=== PATIENT | female | born 1960 | race Caucasian/White ===

== ENCOUNTER 2016-06-02 08:45 | Day surgery (SDC) | payer BC ==
--- NOTE | 2016-06-01 16:53 | PCM.PREANE ---
Preanesthetic Assessment - PMH PMH: current colonoscopy screening - ANESTHESIA/TRANSFUSION/FAMILY HX Anesthesia/Transfusion History: Prior Anesthesia Type of Anesthesia Reaction: Denies: Allergy, Anesthesia Awareness, Excessive Somnolence, Excessive Nausea/Vomiting, Excessive Itching, Excessive Shivering, Malignant Hyperthermia, Malignant Hyperthermia, Family History, Pseudocholinesterase Deficiency, Pseudocholinesterase Deficiency, Family History of, Urinary Retention, Unknown, Other (see below) Family History of Anesthesia Reaction: No - REVIEW OF SYSTEMS Constitutional: Reports: no symptoms 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 Respiratory: Reports: no symptoms Cardiovascular: Reports: no symptoms GI: Reports: no symptoms Other: Reports: none - PHYSICAL ASSESSMENT Height: 5 ft 7 in Weight: 87.09 kg NPO Status Date: 06/01/16 NPO Status Time: 22:30 ASA Class: 2 Mental Status: alert & oriented x3 Airway Class: Mallampati = 1 Dentition: Reports: normal dentition, partial (upper) Thyro-Mental Finger Breadths: 3 Mouth Opening Finger Breadths: 3 ROM/Head Extension: full Respiratory Status: lungs clear to auscultation bilaterally Cardiovascular Status: regular rate & rhythm, normal S1, S2, no murmur, blood pressure WNL - ALLERGIES Allergies/Adverse Reactions: Allergies Allergy/AdvReac Type Severity Reaction Status Date / Time No Known Allergies Allergy Verified 08/10/13 21:10 - BLOOD Blood Available: No - ANESTHESIA PLAN Anesthesia Type Planned: MAC - ACKNOWLEDGEMENTS Pt an appropriate candidate for the planned anesthesia: Yes Alternatives and risks of anesthesia discussed w pt/guardian: Yes Pt/Guardian understands and agree with anesthesia plan: Yes PreAnesthesia Questionnaire HEENT History: Reports: Other (see below) Other HEENT History: top denture Cardiovascular History: Reports: SOB on exertion Other Cardiovascular History: atypical chest pain/ flutter feeling- stress test 02/15 negative with EF 70% patient believes it was anxiety related Respiratory History: Reports: COPD Other Respiratory History: SOB -PFT completed in 2014- patient denies SOB and is very active Other Gastrointestinal History: intestinal obstruction had lysis of adhesions procedure 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 pylori), Lysis of adhesions Female Surgical History: Reports: section, Hysterectomy Other Female Surgeries/Procedures: hx surgery for lysis of peritoneal adhesions - SUBSTANCE USE Smoking Status *Q: Current Every Day Smoker Days Per Week of Alcohol Use: 0 Recreational Drug Use History: No - HOME MEDS Home Medications: Home Meds Aspirin [Magaly Chewable] 81 mg PO DAILY 08/10/13 [History] Estrogens,Conj.,Synthetic A [Cenestin] 0.625 mg PO DAILY 08/10/13 [History] Sertraline [Zoloft] 50 mg PO DAILY 08/10/13 [History] L.acidoph,Paracasei, B.lactis [Probiotic] 1 tab PO DAILY 05/30/16 [History]
[~2016-06-02 08:45] MED LIST: Lactated Ringers 1,000 ML IV SCH; Lidocaine 2% 5 ML SDV ONE; Propofol 200 MG/20 ML SDV ONE; Sodium Chloride 0.9% 10 ML Syringe FLUSH PRN; Sodium Chloride 0.9% 2.5 ML Syringe FLUSH PRN; fentaNYL 100 MCG/2 ML SDV ONE
[2016-06-02] MEDS ORDERED: fentaNYL 100 MCG/2 ML SDV ONE (09:54)
[2016-06-02] MEDS ORDERED: Midazolam 1 MG/ML 2 ML SDV ONE (10:00)
[2016-06-02] MEDS ORDERED: Propofol 200 MG/20 ML SDV ONE ×3 (10:02→10:42)
[2016-06-02] MEDS ORDERED: Phenylephrine/Normal Saline 100 MCG/ML 10 ML Syringe ONE (10:19)
--- NOTE | 2016-06-02 10:49 | PCM.OPNOTE ---
- General Post-Op/Procedure Note Date of Surgery/Procedure: 06/02/16 Operative Procedure(s): SCREENING COLONOSCOPY Findings: descending colon and sigmoid polyps. cecal biopsy taken. Pre Op Diagnosis: screening colonoscopy Post-Op Diagnosis: screening colonoscopy Anesthesia Technique: [facility] [place] Surgeon: Viki Crowell Condition: Good Free Text/Narrative:: 55 year old female that underwent a screening colonoscopy. Findings: sigmoid and descending colon polyps. Cecal biopsy taken. Discharge plan: 1. f/u with Dr. Crowell in 2 weeks.
--- NOTE | 2016-06-02 11:03 | PCM.POSTAN ---
POST ANESTHESIA ASSESSMENT - MENTAL STATUS Mental Status: alert, oriented - RESPIRATORY Respiratory Status: respiratory rate WNL, airway patent, O2 saturation stable - CARDIOVASCULAR CV Status: pulse rate WNL, blood pressure stable - GASTROINTESTINAL GI Status: no symptoms - PAIN Pain Score: 0 - POST OP HYDRATION Hydration Status: adequate & stable
--- NOTE | 2016-06-02 11:28 | PCM48HPAN ---
Post Anesthesia Note - EVALUATION WITHIN 48HRS OF ANESTHETIC Vital Signs in Normal Range: Yes Patient Participated in Evaluation: Yes Respiratory Function Stable: Yes Airway Patent: Yes Cardiovascular Function Stable: Yes Hydration Status Stable: Yes Pain Control Satisfactory: Yes Nausea and Vomiting Control Satisfactory: Yes Mental Status Recovered: Yes
[2016-06-02 11:39] VITALS: BP 117/68
--- NOTE | 2016-06-02 18:52 | OR ---
SURGEON: VENICE TORRES MD DATE OF PROCEDURE: 06/02/2016 PREOPERATIVE DIAGNOSIS: Screening colonoscopy. POSTOPERATIVE DIAGNOSIS: Screening colonoscopy. PROCEDURE PERFORMED: Screening colonoscopy with biopsies. INSTRUMENT USED: Olympus colonoscope. ANESTHESIA: MAC. EXTENT OF EXAM: To the cecum. PREPARATION: Fair. LIMITATIONS: Unable to retroflex the scope within the cecum secondary to significant looping. INDICATIONS: The patient is a 55-year-old female, who presents for screening colonoscopy. We discussed the procedure including expected perioperative course. We discussed the risks, including bleeding, infection, damage to surrounding structures, including perforation. The patient verbalized understanding and wished to proceed. PROCEDURE IN DETAIL: The patient was brought to the endoscopy suite and placed in left lateral decubitus position on the cart. A time-out was completed verifying the patient's name, age, date of , allergies, and procedure to be performed. Monitored anesthesia care was induced and continuous oxygen was provided via nasal cannula throughout the procedure. After adequate sedation was achieved, a digital rectal exam was performed. This was within normal limits. A well lubricated colonoscope was then inserted in the rectum and advanced under direct visualization to the level of cecum. The cecum was identified by both visual and anatomic landmarks. A photograph was taken of the cecal cap. I was unable to retroflex the scope, due to significant looping of the scope within the sigmoid. The scope was straightened out and fully withdrawn while examining the color, texture, anatomy, and integrity of the mucosa from the cecum to the anal canal. The area around the cecum had one edge that appeared larger than normal. Biopsies were taken of the cecal edge. Two sessile polyps were discovered within the descending colon and sigmoid colon. These were removed with a cold biopsy forceps. The remainder of the colon was normal. The scope was brought into the rectum and retroflexed to allow visualization of the anal canal opening. This appeared normal. Photograph was taken. The scope was then removed from the patient and the procedure terminated. The patient was transferred to the recovery room in stable condition. Cecum to anus time was 20 minutes. ENDOSCOPIC DIAGNOSIS: Cecal biopsies, descending for second cecal edge. Descending colon polyp, sigmoid polyp. RECOMMENDATIONS: Follow up in clinic in 2 weeks. PARVEZ NIELSEN /[id number] WENDY
== END 2016-06-02 11:59 | disposition home or self-care (01) ==
LOC: MW.SDS 08:45
PROVIDERS: ATTEND Surgery
PROC: 0DBH8ZX Excision of Cecum, Via Natural or Artificial Opening Endoscopic, Diagnostic (ICD-10-PCS; principal; 2016-06-02)
PROC: 0DBN8ZZ Excision of Sigmoid Colon, Via Natural or Artificial Opening Endoscopic (ICD-10-PCS; 2016-06-02)
PROC: 0DBM8ZZ Excision of Descending Colon, Via Natural or Artificial Opening Endoscopic (ICD-10-PCS; 2016-06-02)
DX: Z12.11 Encounter for screening for malignant neoplasm of colon (principal); D12.4 Benign neoplasm of descending colon; D12.5 Benign neoplasm of sigmoid colon; K52.9 Noninfective gastroenteritis and colitis, unspecified; J44.9 Chronic obstructive pulmonary disease, unspecified; F17.200 Nicotine dependence, unspecified, uncomplicated; F41.9 Anxiety disorder, unspecified; E66.9 Obesity, unspecified; Z79.82 Long term (current) use of aspirin; Z79.899 Other long term (current) drug therapy; Z90.49 Acquired absence of other specified parts of digestive tract; Z90.710 Acquired absence of both cervix and uterus; Z98.890 Other specified postprocedural states; Z68.30 Body mass index [BMI] 30.0-30.9, adult
CPT/HCPCS: 45380; 82962; 88305; J2250; J3010; J7120; J2704

== ENCOUNTER 2018-05-19 09:33 | Emergency (ER) | payer BC ==
[2018-05-19 09:44] VITALS: BP 166/63
--- NOTE | 2018-05-19 09:51 | EDM.PDOC ---
ED HPI GENERAL MEDICAL PROBLEM - General Chief Complaint: Genitourinary Problem Stated Complaint: URINARY ISSUES Time Seen by Provider: 05/19/18 09:41 - History of Present Illness INITIAL COMMENTS - FREE TEXT/NARRATIVE: HISTORY AND PHYSICAL: History of present illness: Patient 57-year-old white female presents with history of discomfort with urination 1 day she's had UTIs frequently in the past she responds well to Bactrim area there is no fever chills nausea vomiting back pain or other concern Review of systems: As per history of present illness and below otherwise all systems reviewed and negative. Past medical history: As per history of present illness and as reviewed below otherwise noncontributory. Surgical history: As per history of present illness and as reviewed below otherwise noncontributory. Social history: No reported history of drug or alcohol abuse. Family history: As per history of present illness and as reviewed below otherwise noncontributory. Physical exam: HEENT: Atraumatic, normocephalic, pupils reactive, negative for conjunctival pallor or scleral icterus, mucous membranes moist, throat clear, neck supple, nontender, trachea midline. Lungs: Clear to auscultation, breath sounds equal bilaterally, chest nontender. Heart: S1S2, regular, negative for clicks, rubs, or JVD. Abdomen: Soft, nondistended, nontender. Negative for masses or hepatosplenomegaly. Negative for costovertebral tenderness. Pelvis: Stable nontender. Genitourinary: Deferred. Rectal: Deferred. Extremities: Atraumatic, negative for cords or calf pain. Neurovascular unremarkable. Neuro: Awake, alert, oriented. Cranial nerves II through XII unremarkable. Cerebellum unremarkable. Motor and sensory unremarkable throughout. Exam nonfocal. Diagnostics: UA with reflex Therapeutics: None Impression: #1 dysuria/UTI Definitive disposition and diagnosis as appropriate pending reevaluation and review of above. urniary Pain Score (Numeric/FACES): 5 - Related Data Allergies Allergy/AdvReac Type Severity Reaction Status Date / Time No Known Allergies Allergy Verified 05/19/18 09:41 Home Meds: Home Meds Aspirin [Magaly Chewable Aspirin] 81 mg PO DAILY 08/10/13 [History] Estrogens,Conj.,Synthetic A [Cenestin] 0.625 mg PO DAILY 08/10/13 [History] Sertraline [Zoloft] 50 mg PO DAILY 08/10/13 [History] L.acidoph,Paracasei, B.lactis [Probiotic] 1 tab PO DAILY 05/30/16 [History] Past Medical History HEENT History: Reports: Other (See Below) Other HEENT History: top denture Cardiovascular History: Reports: SOB on Exertion Other Cardiovascular History: atypical chest pain/ flutter feeling- stress test 02/15 negative with EF 70% patient believes it was anxiety related Respiratory History: Reports: COPD Other Respiratory History: SOB -PFT completed in 2014- patient denies SOB and is very active Gastrointestinal History: Reports: None Other Gastrointestinal History: intestinal obstruction had lysis of adhesions procedure Genitourinary History: Reports: None 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: Musculoskeletal History: Reports: None Neurological History: Reports: None Psychiatric History: Reports: Anxiety Endocrine/Metabolic History: Reports: Obesity/BMI 30+, Other (See Below) Other Endocrine/Metabolic History: "prediabetic" Hematologic History: Reports: None Immunologic History: Reports: None Oncologic (Cancer) History: Reports: None Dermatologic History: Reports: Other (See Below) Other Dermatologic History: dry skin - Past Surgical History Head Surgeries/Procedures: Reports: None HEENT Surgical History: Reports: None Cardiovascular Surgical History: Reports: None Respiratory Surgical History: Reports: None GI Surgical History: Reports: Cholecystectomy, Colonoscopy, EGD, Lysis of Adhesions Female Surgical History: Reports: Section, Hysterectomy Endocrine Surgical History: Reports: None Neurological Surgical History: Reports: None Musculoskeletal Surgical History: Reports: None Oncologic Surgical History: Reports: None Dermatological Surgical History: Reports: None Social & Family History - Family History Family Medical History: Noncontributory - Tobacco Use Smoking Status *Q: Current Every Day Smoker Years of Tobacco use: 25 Packs/Tins Daily: 0.5 Second Hand Smoke Exposure: No - Caffeine Use Caffeine Use: Reports: Coffee, Soda, Tea - Recreational Drug Use Recreational Drug Use: No ED ROS GENERAL - Review of Systems Review Of Systems: ROS reveals no pertinent complaints other than HPI. ED EXAM, GENERAL - Physical Exam Exam: See Below (See dictation) Course - Vital Signs Last Recorded V/S: Last Vital Signs Temp 36.1 C 05/19/18 09:42 Pulse 69 05/19/18 09:42 Resp 18 05/19/18 09:42 BP 166/63 H 05/19/18 09:42 Pulse Ox 98 05/19/18 09:42 - Orders/Labs/Meds Orders: Active Orders 24 hr Category Date Time Status UA RFX JOE AND CULT IF INDIC [URIN] Stat Lab 05/19/18 09:43 Ordered Departure - Departure Time of Disposition: 09:50 Disposition: Home, Self-Care 01 Condition: Good Clinical Impression: UTI, Urinary tract infectious disease - Discharge Information Referrals: PCP,None [Primary Care Provider] - Additional Instructions: The following information is given to patients seen in the emergency department who are being discharged to home. This information is to outline your options for follow-up care. We provide all patients seen in our emergency department with a follow-up referral. The need for follow-up, as well as the timing and circumstances, are variable depending upon the specifics of your emergency department visit. If you don't have a primary care physician on staff, we will provide you with a referral. We always advise you to contact your personal physician following an emergency department visit to inform them of the circumstance of the visit and for follow-up with them and/or the need for any referrals to a consulting specialist. The emergency department will also refer you to a specialist when appropriate. This referral assures that you have the opportunity for followup care with a specialist. All of these measure are taken in an effort to provide you with optimal care, which includes your followup. Under all circumstances we always encourage you to contact your private physician who remains a resource for coordinating your care. When calling for followup care, please make the office aware that this follow-up is from your recent emergency room visit. If for any reason you are refused follow-up, please contact the [facility] emergency department at and asked to speak to the emergency department charge nurse. Bactrim as prescribed push fluids follow primary medical doctor as needed as discussed and return as needed as discussed - My Orders Last 24 Hours: My Active Orders 05/19/18 09:43 UA RFX JOE AND CULT IF INDIC [URIN] Stat - Assessment/Plan Last 24 Hours: My Active Orders 05/19/18 09:43 UA RFX JOE AND CULT IF INDIC [URIN] Stat
== END 2018-05-19 10:44 | disposition home or self-care (01) ==
LOC: MW.ED 09:33
DX: N39.0 Urinary tract infection, site not specified (principal); J44.9 Chronic obstructive pulmonary disease, unspecified; F17.210 Nicotine dependence, cigarettes, uncomplicated; Z79.82 Long term (current) use of aspirin; Z79.899 Other long term (current) drug therapy
CPT/HCPCS: 81001; 87086; 87088; 87186; 99282; 99283

== ENCOUNTER 2019-01-05 12:28 | Emergency (ER) | payer BC ==
--- NOTE | 2019-01-05 12:49 | EDM.PDOC ---
ED HPI GENERAL MEDICAL PROBLEM - General Chief Complaint: Skin Complaint Stated Complaint: LEFT CHEEK SWOLLAN Time Seen by Provider: 01/05/19 12:42 Source of Information: Reports: Patient History Limitations: Reports: No Limitations - History of Present Illness INITIAL COMMENTS - FREE TEXT/NARRATIVE: HISTORY AND PHYSICAL: History of present illness: Patient is a 58-year-old female presenting to the emergency room for complaints of left-sided swelling patient states while eating at [employer] today with her she came out and noticed that the left side of her face was swollen. Confirmed that she has no known drug allergies or food allergies and did not eat anything new at lunch. She describes tightness on the left side of her face that expands to her left ear and neck, but denies pain. She does have complaints of dizziness when walking, "slightly woozy", change in vision that she says is "hard to describe" and "feels like it [her face] is on fire". She denies new supplements, medications, or dental pain. Patient denies any fever, chills, headache, syncope or near syncope. Denies any chest pain, back pain, shortness of breath or cough. Denies any abdominal pain, vomiting, diarrhea, constipation or dysuria. Has not noted any blood in urine or stool. Patient has been eating and drinking appropriately. Review of systems: As per history of present illness and below otherwise all systems reviewed and negative. Past medical history: As per history of present illness and as reviewed below otherwise noncontributory. Surgical history: As per history of present illness and as reviewed below otherwise noncontributory. Social history: See social history for further information Family history: As per history of present illness and as reviewed below otherwise noncontributory. Physical exam: General: Well-nourished and well-developed 58-year-old female. Alert and orientated. Nontoxic in appearance and in no acute distress. Signs have been reviewed by me. HEENT: Normocephalic, slight edema with no erythema noted to the left side of patients face under the zygomatic process extending to the mandible, denies pain along the TMJ, pupils equal and reactive bilaterally, negative for conjunctival pallor or scleral icterus, mucous membranes moist, TMs normal bilaterally, throat clear, firm nodule-like lymph node palpated under left side of mandible, nontender, trachea midline. No drooling or trismus noted. No meningeal signs. No hot potato voice noted. Lungs: Clear to auscultation, breath sounds equal bilaterally, chest nontender. Heart: S1S2, regular rate and rhythm without overt murmur Abdomen: Soft, nondistended, nontender. Negative for masses or hepatosplenomegaly. Negative for costovertebral tenderness. Skin: Intact, warm, dry. No lesions or rashes noted. Extremities: Atraumatic, moves all extremities per self without difficulty or deficits, negative for cords or calf pain. Neurovascular unremarkable. Neuro: Awake, alert, oriented. Cranial nerves II through XII unremarkable. Cerebellum unremarkable. Motor and sensory unremarkable throughout. Exam nonfocal. Notes: Mild diffuse fullness and minimal soft tissue stranding throughout the left parotid gland consistent with nonspecific parotiditis. No sign of any mass, abscess, or adenopathy within the parotid gland. New nonspecific soft tissue fullness of the base of the tongue on the left. Progression of disc degenerative disease at C5-6, now with a moderate diffuse disc bulge/osteophyte complex which could result in mild spinal stenosis. Progression of bilateral foraminal stenosis at this level, now moderate. Dr Pedersen was involved in this patient's care. Patient is able to swallow her saliva and is able to eat and drink. Nontoxic appearing. Medication and supportive care measures were reviewed and discussed. It is noted that her BP is elevated; she states she wants to be discharged and is not concerned with his today. She will follow up with her PCP for this, and follow up with ENT for her diagnosis today. Voices understanding and is agreeable to plan of care. Denies any further questions or concerns at this time. Diagnostics: Soft tissue CT with contrast of the head, CMP, CBC Therapeutics: IV fluid, Solu-Medrol Prescription: Clindamycin Medrol Dosepak Impression: Parotidis, nonspecific Plan: 1. Drink plenty of fluids. Take the medications as directed. 2. Stop smoking. 3. Please follow-up with the ENT specialist in [place] or [place] as we discussed. Return to the ED as needed and as discussed. Definitive disposition and diagnosis as appropriate pending reevaluation and review of above. Left Face/Facial Pain Score (Numeric/FACES): 5 - Related Data Allergies Allergy/AdvReac Type Severity Reaction Status Date / Time No Known Allergies Allergy Verified 01/05/19 12:45 Home Meds: Home Meds Aspirin [Magaly Chewable Aspirin] 81 mg PO DAILY 08/10/13 [History] Estrogens,Conj.,Synthetic A [Cenestin] 0.625 mg PO DAILY 08/10/13 [History] Sertraline [Zoloft] 50 mg PO DAILY 08/10/13 [History] L.acidoph,Paracasei, B.lactis [Probiotic] 1 tab PO DAILY 05/30/16 [History] Past Medical History HEENT History: Reports: Other (See Below) Other HEENT History: top denture Cardiovascular History: Reports: SOB on Exertion Other Cardiovascular History: atypical chest pain/ flutter feeling- stress test 02/15 negative with EF 70% patient believes it was anxiety related Respiratory History: Reports: COPD Other Respiratory History: SOB -PFT completed in 2014- patient denies SOB and is very active Gastrointestinal History: Reports: None Other Gastrointestinal History: intestinal obstruction had lysis of adhesions procedure Genitourinary History: Reports: None 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: Musculoskeletal History: Reports: None Neurological History: Reports: None Psychiatric History: Reports: Anxiety Endocrine/Metabolic History: Reports: Obesity/BMI 30+, Other (See Below) Other Endocrine/Metabolic History: "prediabetic" Hematologic History: Reports: None Immunologic History: Reports: None Oncologic (Cancer) History: Reports: None Dermatologic History: Reports: Other (See Below) Other Dermatologic History: dry skin - Past Surgical History Head Surgeries/Procedures: Reports: None HEENT Surgical History: Reports: None Cardiovascular Surgical History: Reports: None Respiratory Surgical History: Reports: None GI Surgical History: Reports: Cholecystectomy, Colonoscopy, EGD, Lysis of Adhesions Female Surgical History: Reports: Section, Hysterectomy Endocrine Surgical History: Reports: None Neurological Surgical History: Reports: None Musculoskeletal Surgical History: Reports: None Oncologic Surgical History: Reports: None Dermatological Surgical History: Reports: None Social & Family History - Family History Family Medical History: Noncontributory - Caffeine Use Caffeine Use: Reports: Coffee, Soda, Tea ED ROS GENERAL - Review of Systems Review Of Systems: ROS reveals no pertinent complaints other than HPI. ED EXAM, SKIN/RASH Exam: See Below (See dictation) Course - Vital Signs Last Recorded V/S: Last Vital Signs Temp 96.3 F 01/05/19 12:43 Pulse 65 01/05/19 12:43 Resp 18 01/05/19 12:43 BP 180/81 H 01/05/19 12:43 Pulse Ox 97 01/05/19 12:43 - Orders/Labs/Meds Labs: Laboratory Tests 01/05/19 01/05/19 Range/Units 13:14 13:14 WBC 9.96 (4.0-11.0) K/uL RBC 4.36 (4.30-5.90) M/uL Hgb 13.6 (12.0-16.0) g/dL Hct 41.6 (36.0-46.0) % MCV 95.4 (80.0-98.0) fL MCH 31.2 (27.0-32.0) pg MCHC 32.7 (31.0-37.0) g/dL RDW Std Deviation 48.0 (28.0-62.0) fl RDW Coeff of Marco 14 (11.0-15.0) % Plt Count 297 (150-400) K/uL MPV 9.60 (7.40-12.00) fL Neut % (Auto) 57.9 (48.0-80.0) % Lymph % (Auto) 33.4 (16.0-40.0) % Harrison % (Auto) 4.5 (0.0-15.0) % Eos % (Auto) 3.7 (0.0-7.0) % Baso % (Auto) 0.5 (0.0-1.5) % Neut # (Auto) 5.8 H (1.4-5.7) K/uL Lymph # (Auto) 3.3 H (0.6-2.4) K/uL Harrison # (Auto) 0.5 (0.0-0.8) K/uL Eos # (Auto) 0.4 (0.0-0.7) K/uL Baso # (Auto) 0.1 (0.0-0.1) K/uL Nucleated RBC % 0.0 /100WBC Nucleated RBCs # 0 K/uL Sodium 140 (136-145) mmol/L Potassium 4.1 (3.5-5.1) mmol/L Chloride 106 (98-107) mmol/L Carbon Dioxide 26.8 (21.0-32.0) mmol/L BUN 17 (7.0-18.0) mg/dL Creatinine 0.8 (0.6-1.0) mg/dL Est Cr Clr Drug Dosing 108.13 mL/min Estimated GFR (MDRD) > 60.0 ml/min Glucose 111 H (74-106) mg/dL Calcium 8.9 (8.5-10.1) mg/dL Total Bilirubin 0.4 (0.2-1.0) mg/dL AST 20 (15-37) IU/L ALT 21 (14-63) IU/L Alkaline Phosphatase 115 (46-116) U/L Total Protein 7.3 (6.4-8.2) g/dL Albumin 3.5 (3.4-5.0) g/dL Globulin 3.8 (2.6-4.0) g/dL Albumin/Globulin Ratio 0.9 (0.9-1.6) Meds: Medications Discontinued Medications Generic Name Dose Route Start Last Admin Trade Name Anujq PRN Reason Stop Dose Admin Sodium Chloride 1,000 mls @ 999 mls/hr 01/05/19 13:09 01/05/19 13:31 Normal Saline IV 01/05/19 14:09 999 mls/hr STAT ONE Administration Iopamidol 75 ml 01/05/19 13:43 01/05/19 13:44 Isovue Multipack-370 (76%) IVPUSH 01/05/19 13:44 75 ml ONETIME STA Administration Methylprednisolone Sodium Succinate 125 mg 01/05/19 13:04 01/05/19 13:32 Solu-Medrol IVPUSH 01/05/19 13:05 125 mg ONETIME ONE Administration Departure - Departure Time of Disposition: 14:47 Disposition: Home, Self-Care 01 Clinical Impression: Parotiditis - Discharge Information Instructions: Parotitis Referrals: Wolfgang Atkins MD [Primary Care Provider] - Forms: ED Department Discharge Additional Instructions: The following information is given to patients seen in the emergency department who are being discharged to home. This information is to outline your options for follow-up care. We provide all patients seen in our emergency department with a follow-up referral. The need for follow-up, as well as the timing and circumstances, are variable depending upon the specifics of your emergency department visit. If you don't have a primary care physician on staff, we will provide you with a referral. We always advise you to contact your personal physician following an emergency department visit to inform them of the circumstance of the visit and for follow-up with them and/or the need for any referrals to a consulting specialist. The emergency department will also refer you to a specialist when appropriate. This referral assures that you have the opportunity for follow-up care with a specialist. All of these measure are taken in an effort to provide you with optimal care, which includes your follow-up. Under all circumstances we always encourage you to contact your private physician who remains a resource for coordinating your care. When calling for follow-up care, please make the office aware that this follow-up is from your recent emergency room visit. If for any reason you are refused follow-up, please contact the [facility] Emergency Department at and asked to speak to the emergency department charge nurse. [facility] [address] [place] [id number] [address] [address] 1. Drink plenty of fluids. Take the medications as directed. 2. Stop smoking. 3. Please follow-up with the ENT specialist in [place] or [place] as we discussed. Return to the ED as needed and as discussed.
[2019-01-05] MEDS ORDERED: methylPREDNISolone Sodium Succinate 125 MG/2 ML SDV IVPUSH ONE (13:04)
[2019-01-05] MEDS ORDERED: Sodium Chloride 0.9% 1,000 ML IV ONE (13:09)
[2019-01-05 13:40] LABS: BLOOD UREA NITROGEN,BUN 17 mg/dL (7.0-18.0); CARBON DIOXIDE,CO2 26.8 mmol/L (21.0-32.0); CHLORIDE,CL 106 mmol/L (98-107); GLUCOSE RANDOM 111 mg/dL (74-106); POTASSIUM,K 4.1 mmol/L (3.5-5.1); SODIUM,NA 140 mmol/L (136-145)
[2019-01-05] MEDS ORDERED: Iopamidol 755 MG/ML 200 ML Multipack Bottle IVPUSH STA (13:43)
--- NOTE | 2019-01-05 14:31 | CT ---
INDICATION: Left neck swelling. COMPARISON: CT of the cervical spine from 10/14/2012 TECHNIQUE: CT examination of the neck is performed using spiral technique during the uneventful intravenous administration of 75 cc of Isovue 370. 3 mm thick axial sections were made along with coronal and sagittal sections. Please note that all CT scans at this facility use dose modulation, iterative reconstruction, and/or weight-based dosing when appropriate to reduce radiation dose to as low as reasonably achievable. FINDINGS: There is new nonspecific soft tissue fullness of the base of the tongue on the left, without a distinct abscess or mass. There is no sign of any fullness or swelling of the adjacent normal-appearing pharyngeal tonsils. There is fullness of the left parotid gland compared to the right with mild streaky high-density. There is no sign of any mass or abscess within the parotid gland. There is no sign of any lymphadenopathy within the parotid gland. The findings are that of a nonspecific left parotiditis. Only the medial portion of the parotid glands is included on the previous study, and the size of the parotid glands cannot be determined. There is no sign of additional cervical mass or adenopathy on today`s study. The rest of the airway structures are normal in appearance. The submandibular glands are normal in appearance. The visualized posterior fossa, mastoids, skull base, orbits, and paranasal sinuses are normal in appearance. The great vessels are unremarkable. The thyroid gland is normal in appearance. The visualized upper chest is clear. The visualized upper mediastinum is normal in appearance. There is moderate C5-6 disc degenerative disease with moderate diffuse disc bulging and posterior osteophytic ridging. The bulge/osteophyte complex could come into contact with the anterior cervical cord and resulting in mild spinal stenosis. There is moderate bilateral foraminal stenosis from uncovertebral joint hypertrophy. These degenerative changes have significantly progressed compared to the previous CT, where there is only mild diffuse disc bulging and posterior osteophytic ridging, and only mild bilateral foraminal stenosis. The rest of the cervical spine remains normal in appearance. IMPRESSION: Mild diffuse fullness and minimal soft tissue stranding throughout the left parotid gland consistent with nonspecific parotiditis. No sign of any mass, abscess, or adenopathy within the parotid gland. New nonspecific soft tissue fullness of the base of the tongue on the left. Progression of disc degenerative disease at C5-6, now with a moderate diffuse disc bulge/osteophyte complex which could result in mild spinal stenosis. Progression of bilateral foraminal stenosis at this level, now moderate. Please note that all CT scans at this facility use dose modulation, iterative reconstruction, and/or weight-based dosing when appropriate to reduce radiation dose to as low as reasonably achievable. Dictated by Efren Christie MD @ Jan 05 2019 2:17PM Signed by Dr. Efren Christie @ Jan 05 2019 2:28PM
[2019-01-05 16:09] VITALS: BP 191/86; PULSE 86
== END 2019-01-05 15:00 | disposition home or self-care (01) ==
LOC: MW.ED 12:28
DX: K11.20 Sialoadenitis, unspecified (principal); E66.9 Obesity, unspecified; F41.9 Anxiety disorder, unspecified
CPT/HCPCS: 36415; 70491; 80053; 85025; 96374; 99284; J2930; J7040; Q9967

== ENCOUNTER 2020-04-07 06:49 | Day surgery (SDC) | payer BC ==
[~2020-04-07 06:49] MED LIST changes: -Lidocaine 2% 5 ML SDV ONE; -Propofol 200 MG/20 ML SDV ONE; +Sodium Chloride 0.9% 10 ML SDV IV PRN; -fentaNYL 100 MCG/2 ML SDV ONE
[2020-04-07] MEDS ORDERED: Ondansetron 4 MG/2 ML SDV ONE (06:56)
[2020-04-07] MEDS ORDERED: Propofol 200 MG/20 ML SDV ONE ×2 (06:57→08:30)
[2020-04-07] MEDS ORDERED: Midazolam 1 MG/ML 2 ML SDV ONE (06:57)
[2020-04-07] MEDS ORDERED: fentaNYL 100 MCG/2 ML SDV ONE (06:57)
--- NOTE | 2020-04-07 07:30 | PCM.PREANE ---
Preanesthetic Assessment - Anesthesia/Transfusion/Family Hx Anesthesia History: Prior Anesthesia Without Reaction Family History of Anesthesia Reaction: No Transfusion History: No Prior Transfusion(s) - Review of Systems General: No Symptoms Pulmonary: No Symptoms Cardiovascular: No Symptoms Gastrointestinal: No Symptoms Neurological: No Symptoms Other: Reports: None - Physical Assessment NPO Status Date: 04/06/20 Vital Signs: Last Vital Signs Temp 97.3 F 04/07/20 06:58 Pulse 59 L 04/07/20 06:58 Resp 15 04/07/20 06:58 BP 136/79 04/07/20 06:58 Pulse Ox 96 04/07/20 06:58 Height: 5 ft 7 in Weight: 88.904 kg ASA Class: 2 Mental Status: Alert & Oriented x3 Airway Class: Mallampati = 2 Dentition: Reports: Dentures (upper) ROM/Head Extension: Full Lungs: Clear to Auscultation, Normal Respiratory Effort Cardiovascular: Regular Rate, Regular Rhythm - Allergies Allergies/Adverse Reactions: Allergies Allergy/AdvReac Type Severity Reaction Status Date / Time No Known Allergies Allergy Verified 04/01/20 09:11 - Blood Blood Available: No - Anesthesia Plan Pre-Op Medication Ordered: None - Acknowledgements Anesthesia Type Planned: General Anesthesia (tiva) Pt an Appropriate Candidate for the Planned Anesthesia: Yes Alternatives and Risks of Anesthesia Discussed w Pt/Guardian: Yes Pt/Guardian Understands and Agrees with Anesthesia Plan: Yes PreAnesthesia Questionnaire HEENT History: Reports: Other (See Below) Other HEENT History: reading glasses, top denture Cardiovascular History: Reports: Hypertension Respiratory History: Reports: None Gastrointestinal History: Reports: Colon Polyp, Helicobacter Pylori, Other (See Below) Other Gastrointestinal History: hx lysis of adhesions for intestinal obstruction Genitourinary History: Reports: None 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: Musculoskeletal History: Reports: None Neurological History: Reports: None Psychiatric History: Reports: Anxiety Endocrine/Metabolic History: Reports: Other (See Below) Other Endocrine/Metabolic History: "prediabetic" Hematologic History: Reports: None Immunologic History: Reports: None Oncologic (Cancer) History: Reports: None Dermatologic History: Reports: None - Past Surgical History Head Surgeries/Procedures: Reports: None HEENT Surgical History: Reports: None Cardiovascular Surgical History: Reports: None Respiratory Surgical History: Reports: None GI Surgical History: Reports: Cholecystectomy, Colonoscopy, EGD, Hernia, Inguinal, Lysis of Adhesions Female Surgical History: Reports: Section, Hysterectomy Other Female Surgeries/Procedures: hx surgery for lysis of peritoneal adhesions Endocrine Surgical History: Reports: None Neurological Surgical History: Reports: None Musculoskeletal Surgical History: Reports: None Oncologic Surgical History: Reports: None Dermatological Surgical History: Reports: None - SUBSTANCE USE Tobacco Use Status *Q: Current Every Day Tobacco User Tobacco Use Within Last Twelve Months: Cigarettes - HOME MEDS Home Medications: Home Meds Aspirin [Magaly Chewable Aspirin] 81 mg PO DAILY 08/10/13 [History] Sertraline [Zoloft] 50 mg PO DAILY 08/10/13 [History] L.acidoph,Paracasei, B.lactis [Probiotic] 1 tab PO DAILY 05/30/16 [History] Cholecalciferol (Vitamin D3) [Vitamin D3] 1 tab PO DAILY 04/01/20 [History] Estrogens, Conjugated [Premarin] 0.625 mg PO DAILY 04/01/20 [History] Losartan Potassium 25 mg PO DAILY 04/01/20 [History] - CURRENT (IN HOUSE) MEDS Current Meds: Current Medications Lactated Ringer's (Ringers, Lactated) 1,000 mls @ 125 mls/hr IV ASDIRECTED RIVKA Last Admin: 04/07/20 07:15 Dose: 125 mls/hr Documented by: Sodium Chloride (Saline Flush) 10 ml FLUSH ASDIRECTED PRN PRN Reason: Keep Vein Open Sodium Chloride (Saline Flush) 2.5 ml FLUSH ASDIRECTED PRN PRN Reason: Keep Vein Open Sodium Chloride (Saline Flush) 10 ml FLUSH ASDIRECTED PRN PRN Reason: Keep Vein Open Sodium Chloride (Saline Flush) 2.5 ml FLUSH ASDIRECTED PRN PRN Reason: Keep Vein Open Sodium Chloride (Normal Saline) 10 ml IV ASDIRECTED PRN PRN Reason: IV Use Discontinued Medications Fentanyl (Sublimaze) Confirm Administered Dose 100 mcg .ROUTE .STK-MED ONE Stop: 04/07/20 06:58 Midazolam HCl (Versed 1 Mg/Ml) Confirm Administered Dose 2 mg .ROUTE .STK-MED ONE Stop: 04/07/20 06:58 Ondansetron HCl (Zofran) Confirm Administered Dose 4 mg .ROUTE .STK-MED ONE Stop: 04/07/20 06:57 Propofol (Diprivan 20 Ml) Confirm Administered Dose 200 mg .ROUTE .[facility] ONE Stop: 04/07/20 06:58
--- NOTE | 2020-04-07 08:59 | PCM.POSTAN ---
POST ANESTHESIA ASSESSMENT - MENTAL STATUS Mental Status: Alert, Oriented - VITAL SIGNS Vital Signs: Last Vital Signs Temp 97.3 F 04/07/20 06:58 Pulse 52 L 04/07/20 08:53 Resp 10 L 04/07/20 08:53 BP 115/49 L 04/07/20 08:53 Pulse Ox 93 L 04/07/20 08:53 - RESPIRATORY Respiratory Status: Respiratory Rate WNL, Airway Patent, O2 Saturation Stable - CARDIOVASCULAR CV Status: Pulse Rate WNL, Blood Pressure Stable - GASTROINTESTINAL GI Status: No Symptoms - POST OP HYDRATION Hydration Status: Adequate & Stable
--- NOTE | 2020-04-07 08:59 | PCM48HPAN ---
Post Anesthesia Note - EVALUATION WITHIN 48HRS OF ANESTHETIC Vital Signs in Normal Range: Yes Patient Participated in Evaluation: Yes Respiratory Function Stable: Yes Airway Patent: Yes Cardiovascular Function Stable: Yes Hydration Status Stable: Yes Pain Control Satisfactory: Yes Nausea and Vomiting Control Satisfactory: Yes Mental Status Recovered: Yes Vital Signs: Last Vital Signs Temp 97.3 F 04/07/20 06:58 Pulse 52 L 04/07/20 08:53 Resp 10 L 04/07/20 08:53 BP 115/49 L 04/07/20 08:53 Pulse Ox 93 L 04/07/20 08:53
[2020-04-07 09:04] VITALS: BP 121/59; PULSE 50
--- NOTE | 2020-04-07 09:10 | PCM.OPNOTE ---
- General Post-Op/Procedure Note Date of Surgery/Procedure: 04/07/20 Operative Procedure(s): Diagnostic colonoscopy with polypectomy Findings: Diverticulosis, sigmoid colon polyp x 3 Pre Op Diagnosis: History of colon polyps Post-Op Diagnosis: Sigmoid colon polyp x 3, diverticulosis Anesthesia Technique: MAC Primary Surgeon: Viki Crowell Condition: Good Free Text/Narrative:: Intake & Output 04/06/20 04/07/20 04/07/20 22:59 06:59 14:59 Intake Total 650 Balance 650
--- NOTE | 2020-04-07 11:34 | OR ---
SURGEON: VIKI CROWELL MD DATE OF PROCEDURE: 04/07/2020 PREOPERATIVE DIAGNOSIS: History of colon polyps. POSTOPERATIVE DIAGNOSES: 1. Diverticulosis. 2. Sigmoid colon polyps x3. PROCEDURE PERFORMED: Diagnostic colonoscopy with polypectomy. PRIMARY SURGEON: Viki Crowell MD ANESTHESIA: MAC. INSTRUMENT USED: Olympus colonoscope. EXTENT OF EXAM: To the cecum. PREPARATION: Good. LIMITATIONS: None. INDICATIONS FOR EXAMINATION: The patient is a 59-year-old female who presents for a 3-year followup colonoscopy due to a history of colon polyps. I explained the procedure, expected perioperative course, and the risks. She verbalized understanding and wishes to proceed. PROCEDURE IN DETAIL: The patient was brought into the endoscopy suite and placed in left lateral decubitus position. A time-out was completed verifying the patient's name, age, date of , allergies, and procedure to be performed. Monitored anesthesia care was induced and continuous oxygen was provided via nasal cannula throughout the procedure. After adequate sedation was achieved, a digital rectal exam was performed. This exam was within normal limits. A well-lubricated colonoscope was inserted in the rectum and advanced under direct visualization to the level of the cecum. The cecum was identified by both visual and anatomic landmarks. A photograph was taken of the cecal cap; however, I was unable to retroflex the scope within the cecum due to looping of the scope more proximally. The scope was then fully withdrawn while examining the color, texture, anatomy, and integrity of the mucosa from the cecum to the anal canal. The patient was noted to have scattered diverticula within the sigmoid colon. Throughout the sigmoid colon, the patient was noted to have sigmoid colon polyps. There were three of these. The first sigmoid colon polyp was small and sessile. It was removed in a piecemeal fashion using cold biopsy forceps. Sigmoid colon polyp two and three were pedunculated and were removed using a hot snare. They were labeled as sigmoid colon polyp number two and three and sent to pathology. The scope was brought into the rectum and retroflexed to allow visualization of the anal canal opening. This appeared normal and a photograph was taken. The scope was then straightened out and fully withdrawn. The cecum to anus time was 16 minutes. The patient tolerated the procedure well and was transferred to the PACU in stable condition. ENDOSCOPIC DIAGNOSES: 1. Diverticulosis. 2. Sigmoid colon polyps x3. RECOMMENDATIONS: Follow up in clinic in 2 weeks. PARVEZ NIELSEN /[id number]
== END 2020-04-07 09:22 | disposition home or self-care (01) ==
LOC: MW.SDS 06:49
PROVIDERS: ATTEND Surgery
DX: D12.3 Benign neoplasm of transverse colon (principal); K57.30 Diverticulosis of large intestine without perforation or abscess without bleeding; J44.9 Chronic obstructive pulmonary disease, unspecified; I10 Essential (primary) hypertension; F17.210 Nicotine dependence, cigarettes, uncomplicated; E66.9 Obesity, unspecified; F41.9 Anxiety disorder, unspecified; Z79.82 Long term (current) use of aspirin; Z79.899 Other long term (current) drug therapy; Z90.49 Acquired absence of other specified parts of digestive tract; Z98.890 Other specified postprocedural states; Z68.30 Body mass index [BMI] 30.0-30.9, adult
CPT/HCPCS: 45385; 88305; J2250; J2405; J2704; J3010; J7120; 00811